=== PATIENT | male | born 1985 | race Caucasian/White ===

== ENCOUNTER 2020-03-09 07:41 | Emergency (ER) | payer OTHER ==
[~2020-03-09] VITALS: Ht 180.3 cm; Wt 78.5 kg
[2020-03-09 07:48] VITALS: BP 128/71
--- NOTE | 2020-03-09 08:03 | PHYS DOC ---
Past History Past Medical History: MRSA Past Surgical History: No Surgical History Alcohol Use: None Drug Use: None General Adult EDM: Chief Complaint: LACERATION/AVULSION HPI: HPI: 34-year-old male presents with report of laceration skin in the area of dorsal aspect of right third MCP on some sheet metal while patient was at his place of employment. Bleeding controlled with direct pressure. Reports last tetanus shot was in 2008. Denies other injury. Review of Systems: Review of Systems: Constitutional: Denies fever or chills Musculoskeletal: Denies back pain or joint pain Integument: Denies rash; reports laceration to area above right 3rd MCP Neurologic: Denies headache, focal weakness or sensory changes Complete systems were reviewed and found to be within normal limits, except as documented in this note. Current Medications: Current Meds: Current Medications Medications (Trade) Dose Ordered Sig/Marco Antonio Start Time Stop Time Status Last Admin Dose Admin Neomycin/ Polymyxin/ Bacitracin (Triple Antibiotic Ointment) 1 pkt 1X ONCE 03/09/20 07:45 03/09/20 07:46 UNV Physical Exam: PE: Constitutional: Well developed, well nourished, no acute distress, non-toxic appearance HENT: Normocephalic, atraumatic, oropharynx moist Eyes: Conjunctiva normal, no discharge Neck: Normal range of motion, no tenderness, supple Cardiovascular: Right radial pulse +2, right hand CR < 2 sec Lungs & Thorax: No respiratory distress, equal chest rise and fall Skin: Warm, dry, 2cm superficial laceration to dorsal aspect of right 3rd MCP Extremities: No tenderness, ROM intact, no edema Neurologic: Alert and oriented X 3, no focal deficits noted Psychologic: Affect normal, judgment normal EKG: EKG: [] Radiology/Procedures: Radiology/Procedures: [] Course & Med Decision Making: Course & Med Decision Making Patient presents with laceration to dorsal aspect of right 3rd MCP area. Bleeding controlled. Tetanus updated. Wound cleaned, repaired, and dressed. Finger splint applied to prevent suture dehiscence given flexor surface. Patient stable for discharge with outpatient follow-up with PCP. Discussed findings and plan with patient and co-worker, who acknowledge understanding and agreement. Lisseth Disclaimer: Lisseth Disclaimer: This electronic medical record was generated, in whole or in part, using a voice recognition dictation system. Splinting Splinting : Location: Right middle finger Pre-Made Type: metal (Aluminium finger splint) Pre-Proc Neuro Vasc Exam: normal Post-Proc Neuro Vasc Exam: normal, unchanged from pre-exam Laceration/Wound Repair Laceration/Wound Repair : Wound Location: upper extremity (dorsal aspect of right 3rd MCP) Wound's Depth, Shape: superficial, flap Wound Length (cm): 2 Wound Explored: no foreign body removed Irrigated w/ Saline (ccs): 200 Anesthesia: Lidocaine w/ Epi (2%) Volume Anesthetic (ccs): 2 Wound Repaired With: sutures Suture Size/Type: 4:0, nylon Number of Sutures: 5 Sterile Dressing Applied?: Yes Splint Applied?: Yes Type of Splint Applied: Aluminium finger splint Progress Verbal consent obtained. Time out performed. Hand hygiene utilized. Wound cleaned with ChloraPrep. Anesthesia obtained via a 25-gauge hypodermic needle with (2) mL's of lidocaine 2% with epinephrine. Copious irrigation performed. Wound well approximated with 4-0 Nylon x 5 simple interrupted sutures. Patient tolerated procedure well and without difficulty. Empiric antibiotic ointment applied prior to sterile dressing. Departure Departure: Impression: Primary Impression: Hand laceration Qualified Codes: S61.411A - Laceration without foreign body of right hand, initial encounter Disposition: 01 HOME/RESIDENCE PRIOR TO ADM Condition: STABLE Referrals: PCP,NO (PCP) Patient Instructions: Laceration Care, Adult, [id number] Additional Instructions: Do not soak your wound. You may shower. Clean wound daily with soap and water. Change dressing 2 times daily. Use over the counter antibiotic ointment with each dressing change. Sutures need to be removed in 7-10 days. Present to your family doctor or local urgent care for removal. You may also present to the ED but it will be an additional visit/charge. After suture removal you may use Vitamin E ointment to soften the wound and prevent scarring. Use over the counter Tylenol and/or Ibuprofen as needed for pain or discomfort. Maintain splint for next few days and when using hand. May remove splint to clean wound. ANETTE SHAIKH DO March 09, 2020 08:03
[2020-03-09] MEDS ORDERED: BACITRACIN ZINC TOPICAL OINT PACKET. TP ONE (08:06)
[2020-03-09] MEDS ORDERED: DIPH,PERTUSS(ACELL),TET VAC/PF 0.5 ML SYRINGE. VAX IM ONE (08:15)
[2020-03-09] MEDS ORDERED: NEOMY/BACITR/POLYMYXIN OINT PACKET. TP ONE (08:20)
[2020-03-09] MEDS ORDERED: LIDOCAINE 2%/EPI 1:100,000 20 ML VIAL. IJ ONE (08:20)
== END 2020-03-09 08:40 | disposition home or self-care (01) ==
LOC: ER 07:41 → EEVIPCON 07:41 → ER 08:40
DX: S61.212A Laceration without foreign body of right middle finger without damage to nail, initial encounter (principal); Z86.14 Personal history of Methicillin resistant Staphylococcus aureus infection; W26.8XXA Contact with other sharp object(s), not elsewhere classified, initial encounter; Y93.89 Activity, other specified; Y92.89 Other specified places as the place of occurrence of the external cause; Y99.8 Other external cause status
CPT/HCPCS: 12001; 90471; 90715; 99283